=== PATIENT | male | born 2000 | race Caucasian/White ===

== ENCOUNTER 2020-02-06 18:25 | Emergency (ER) | payer OTHER, SELFPAY ==
[2020-02-06 18:37] VITALS: BP 160/65; PULSE 56; RESP 16; TEMP 36.7; O2SAT 100; BMI 22.4
--- NOTE | 2020-02-06 18:43 | DI.RAD.S_ITS ---
PROCEDURE: XR FINGER LT MIN 2V INDICATIONS: Smash injury of the left thumb TECHNIQUE: AP hand, 2 views of the left 1st finger(s) acquired. COMPARISON: None. FINDINGS: Bones: Suspected subtle nondisplaced fracture of the 1st distal phalanx involving the tuft. No remaining osseous structures intact. No suspicious bony lesions. Soft tissues: No suspicious soft tissue calcifications. IMPRESSION: Soft tissue swelling about the thumb with suspected subtle underlying nondisplaced fracture of the 1st distal phalanx involving the tuft. Dictated by: Gianfranco Taveras M.D. on 02/06/2020 at 18:57 Approved by: Gianfranco Taveras M.D. on 02/06/2020 at 18:59
--- NOTE | 2020-02-06 19:42 | PC.NURSE ---
blood noted under thumb nail. Swelling to distal end of finger. pain with movement.
--- NOTE | 2020-02-06 20:09 | ED_ITS ---
HPI - General Adult General Chief complaint: Extremity Injury, Upper Stated complaint: LEFT HAND THUMB INJURY Time Seen by Provider: 02/06/20 18:50 Source: patient Mode of arrival: Ambulatory Limitations: no limitations History of Present Illness HPI narrative: Otherwise healthy 19-year-old male here for evaluation of an injury that he sustained to his left thumb when he crushed in some fishing here. It occurred earlier in the day. Has had some swelling since then. No prior injuries. Has not done anything for symptoms prior to arrival. Related Data Allergies Allergy/AdvReac Type Severity Reaction Status Date / Time No Known Drug Allergies Allergy Verified 02/06/20 18:42 Review of Systems Constitutional Constitutional: Denies headache(s) ENT Ears, Nose, Mouth, and Throat: Denies headache(s) Musculoskeletal Musculoskeletal: Denies tingling Comments: Left thumb injury Integumentary/Breasts Comments: Bruising to the end of the left thumb Neurologic Neurologic: Denies headache(s) and Denies tingling Hematologic/Lymphatic Hematologic/Lymphatic: Denies easy bleeding and Denies easy bruising Allergic/Immunologic Allergic/Immunologic: Denies urticaria Patient History Medical History Patient denies medical problems (Acute) Social History Smoking Status: Never smoker Smoking Status: Never smoker alcohol intake frequency: a few times a month Substance Use Type: does not use Exam Initial Vital Signs Initial Vital Signs: Vital Signs Temperature 98.0 F 02/06/20 18:37 Pulse Rate 56 L 02/06/20 18:37 Respiratory Rate 16 02/06/20 18:37 Blood Pressure 160/65 H 02/06/20 18:37 Pulse Oximetry 100 02/06/20 18:37 Const General: cooperative and comfortable Cardio Pulses: radial pulses present on the left Skin Other: Bruising involved the distal left thumb from the IP joint distal Neuro Sensory Exam: no sensory deficits noted Extrem Other: Proximal left thumb unremarkable. Patient able to flex and extend the IP joint however does have some discomfort distal to this. Has bruising around the distal left thumb and also a small subungual hematoma. Psych Appearance: grossly normal and well kempt Procedures Orthopedic Splinting/Casting Injury #1: Side: left Upper Extremity Injury Location: finger (Some) Upper Extremity Immobilizer: aluminum form splint Post splinting neuro exam: no change Post splinting vascular exam: no change Placed by: Nursing Course Orders Ordered: ED Orders 02/06/20 18:43 XR finger LT min 2V Stat Vital Signs Vital signs: Vital Signs - 8 hr 02/06/20 18:37 02/06/20 20:24 Temperature 98.0 F Pulse Rate 56 L 60 Respiratory Rate 16 16 Blood Pressure 160/65 H 142/86 H Pulse Oximetry 100 100 Medical Decision Making Imaging Data Extremity x-ray #1: Radiologist's Impression: [address] [address] XRay Report Signed Patient: Grady Herrera MMR#: [id number] : 2000Acct:[id number] Age/Sex: 19 / MDate of Service: 02/06/20 Loc: ED Accession Number: [id number] Procedure: XR finger LT min 2V Ordering Provider: Cj Sepulveda D.O. PROCEDURE: XR FINGER LT MIN 2V INDICATIONS: Smash injury of the left thumb TECHNIQUE: AP hand, 2 views of the left 1st finger(s) acquired. COMPARISON: None. FINDINGS: Bones: Suspected subtle nondisplaced fracture of the 1st distal phalanx invol ving the tuft. No remaining osseous structures intact. No suspicious bony lesions. Soft tissues: No suspicious soft tissue calcifications. IMPRESSION: Soft tissue swelling about the thumb with suspected subtle underlying nondisplaced fracture of the 1st distal phalanx involving the tuft. Dictated by: Gianfranco Taveras M.D. on 02/06/2020 at 18:57 Approved by: Gianfranco Taveras M.D. on 02/06/2020 at 18:59 [facility] Narrative Medical decision making narrative: Neurovascularly intact, x-ray shows potential tuft fracture of the left thumb. Does have bruising over the pad of the thumb and also a small subungual hematoma. The nail is intact. Was placed in aluminum splint for comfort. He was given care instructions and return precautions. He expressed understanding and agreement. Discharge Plan Departure Patient Disposition: Home Clinical Impression: Closed fracture of left thumb Qualifiers: Encounter type: initial encounter Phalanx: distal Fracture alignment: nondisplaced Qualified Code(s): S62.525A - Nondisplaced fracture of distal phalanx of left thumb, initial encounter for closed fracture Discharge Date/Time: 02/06/20 20:25 Activity Restrictions/Additional Instructions: You can remove the aluminum splint to wash your hands and to take a shower. Try to keep your hand is elevated is possible as this will help with the swelling. You can use Tylenol and/or ibuprofen. You can also use ice to help with the discomfort. Contact your primary provider for follow-up. Return to the em ergency department for any new or worsening symptoms Referrals: Javed Kessler MD [Primary Care Provider] -
[2020-02-06 20:24] VITALS: BP 142/86; PULSE 60; RESP 16; O2SAT 100
== END 2020-02-06 20:25 | disposition home or self-care (01) ==
PROVIDERS: Emergency Provider Emergency Medicine; PCP Family Medicine
DX: S62.525A Nondisplaced fracture of distal phalanx of left thumb, initial encounter for closed fracture (principal); W23.0XXA Caught, crushed, jammed, or pinched between moving objects, initial encounter
CPT/HCPCS: 29130; 73140; 99283